=== PATIENT | female | born 1990 | race Caucasian/White ===

== ENCOUNTER 2018-09-25 12:49 | Day surgery (SDC) | payer OTHER ==
[~2018-09-25] VITALS: Ht 172.7 cm; Wt 55.7 kg
[2018-09-25 13:35] VITALS: Ht 172.7 cm; Wt 55.7 kg
[2018-09-25 13:59] VITALS: BP 108/75; PULSE 81; RESP 12
[2018-09-25] MEDS ORDERED: HYOSCYAMINE (14:20)
[2018-09-25] MEDS ORDERED: LANSOPRAZOLE (14:20)
[2018-09-25] MEDS ORDERED: XIFAXAN (14:20)
[2018-09-25] MEDS ORDERED: LACTULOSE (14:20)
[2018-09-25] MEDS ORDERED: FENTAnyl 50 MCG/ML VIAL ONE (16:18)
[2018-09-25] MEDS ORDERED: MIDAZOLAM 1 MG/ML 2 ML INJ ONE ×3 (16:18→16:19)
[2018-09-25 16:27] VITALS: BP 96/62; PULSE 79; RESP 14
== END 2018-09-25 16:51 | disposition home or self-care (01) ==
LOC: GIL 12:49
PROVIDERS: ATTEND Internal Medicine Gastroenterology
DX: K21.0 Gastro-esophageal reflux disease with esophagitis (principal); K64.8 Other hemorrhoids; K29.00 Acute gastritis without bleeding
CPT/HCPCS: 43239; 45380; 84703; 88305; 88312; 88313; J2250; J3010